=== PATIENT | female | born 1940 | race Caucasian/White ===

== ENCOUNTER 2020-12-09 10:33 | Emergency (ER) | payer OTHER ==
[2020-12-09 10:48] VITALS: BP 129/77; PULSE 84; TEMP 98.8; BMI 26.2
== END 2020-12-09 12:31 | disposition home or self-care (01) ==
LOC: JER 10:33
DX: R05 Cough (principal); Z11.52 Encounter for screening for COVID-19
CPT/HCPCS: 71046-TC-FY; 99284-25; C9803; U0003

== ENCOUNTER 2023-09-24 09:04 | Inpatient (IN) | payer OTHER ==
[2023-09-24] MEDS ORDERED: ALBUTEROL SO4 2.5/IPRATROPIUM 0.5 INH SOL 3 ML VIAL.NEB. NEB ONE ×7 (09:51→19:31)
[2023-09-24] MEDS ORDERED: methylPREDNISolone NA SUCC 125 MG/2 ML VIAL ONE (09:52)
[2023-09-24] MEDS ORDERED: MAGNESIUM SULF 50% (8.12 MEQ/2 ML-1 GM VIAL) IVPB ONE (09:52)
[2023-09-24] MEDS ORDERED: MAGNESIUM SULFATE IN WATER 2 GM/50 ML IVPB IVPB ONE (09:52)
[2023-09-24] MEDS ORDERED: AZITHROMYCIN IVPB 500 MG/250 ML BAG IVPB ONE (09:52)
[2023-09-24] MEDS ORDERED: methylPREDNISolone NA SUCC 125 MG/2 ML VIAL IVPB ONE (09:52)
[2023-09-24] MEDS ORDERED: DOXYCYCLINE INJECTION 100 MG in DEXTROSE 5%-WATER 100 ML IVPB ONE (10:20)
[2023-09-24 10:45] LABS: VENOUS BASE EXCESS 3.4 mmol/L (-2-2); VENOUS O2 SATURATION 46.2 % (70-80); VENOUS PCO2 50.3 mmHg (38-52); VENOUS PH 7.384 (7.310-7.410)
[2023-09-24 11:14] LABS: POTASSIUM 4.8 mmol/L (3.5-5.1)
[2023-09-24] MEDS ORDERED: DOXYCYCLINE HYCLATE 100 MG VIAL ONE (11:16)
[2023-09-24 11:19] LABS: ALBUMIN 3.9 g/dl (3.4-5.0); BLOOD UREA NITROGEN 11.2 mg/dL (7-18); MAGNESIUM 2.3 mg/dL (1.8-2.4)
[2023-09-24 11:22] LABS: CREATININE 0.6 mg/dL (0.55-1.3)
[2023-09-24 11:23] LABS: TOT PROT 7.5 g/dl (6.4-8.2)
[2023-09-24 11:43] LABS: HEMATOCRIT 37.4 % (32.4-45.2); HEMOGLOBIN 12.8 GM/dL (10.7-15.3); LYMPH % 27.2 % (8-40); MCH 31.9 pg (25.7-33.7); MCHC 34.2 g/dl (32.0-36.0); MEAN CELL VOLUME 93.4 fl (80-96); MEAN PLT VOLUME 10.5 fl (7.5-11.1); NEUT % 60.8 % (42.8-82.8); PLATELET COUNT 224 10^3/uL (134-434); RDW 13.1 % (11.6-15.6); WHITE BLOOD COUNT 6.6 K/mm3 (4.0-10.0)
[2023-09-24] MEDS ORDERED: methylPREDNISolone NA SUCC 40 MG/1 ML VIAL ONE ×2 (15:28→20:27)
[2023-09-24] MEDS: methylPREDNISolone NA SUCC 40 MG/1 ML VIAL IVPUSH SCH ×2 (16:19→20:35)
[2023-09-24] MEDS: ALBUTEROL SO4 2.5/IPRATROPIUM 0.5 INH SOL 3 ML VIAL.NEB. NEB SCH ×2 (16:20→19:35)
[2023-09-24] MEDS ORDERED: PRAMIPEXOLE DIHYDROCHLORIDE 0.125 MG TABLET PO SCH (22:00)
[2023-09-24] MEDS ORDERED: methylPREDNISolone NA SUCC 40 MG/1 ML VIAL IVPUSH SCH (22:07)
[2023-09-24] MEDS: ALBUTEROL SO4 0.083% IH SOL 2.5 MG/3 ML VIAL.NEB. NEB PRN ×2 (22:13→22:56)
[2023-09-24] MEDS ORDERED: ALBUTEROL SO4 0.083% IH SOL 2.5 MG/3 ML VIAL.NEB. NEB ONE (22:32)
[2023-09-24 23:00] LABS: ALLENS TEST POSITIVE; ARTERIAL BLD GAS O2 SATURATION 98.5 % (95-98); ARTERIAL BLOOD GAS BASE EXCESS -0.3 mmol/L (-2-2); ARTERIAL BLOOD GAS PO2 114.2 mmHg (80-100); ARTERIAL BLOOD GAS pH 7.478 (7.350-7.450)
[2023-09-24] MEDS ORDERED: ENOXAPARIN NA (PORCINE) 40 MG/0.4 ML DISP.SYRIN SQ SCH (23:45)
[2023-09-24] MEDS ORDERED: ENOXAPARIN NA (PORCINE) 40 MG/0.4 ML DISP.SYRIN SQ ONE (23:56)
[2023-09-25] MEDS ORDERED: AZITHROMYCIN IVPB 500 MG/250 ML BAG IVPB STA (00:59)
[2023-09-25] MEDS ORDERED: ALBUTEROL SO4 0.083% IH SOL 2.5 MG/3 ML VIAL.NEB. NEB PRN (02:57)
[2023-09-25] MEDS: methylPREDNISolone NA SUCC 40 MG/1 ML VIAL IVPUSH SCH ×4 (03:53→21:28)
[2023-09-25] MEDS ORDERED: PANTOPRAZOLE 40 MG TABLET PO SCH ×2 (07:00→10:00)
[2023-09-25 07:45] LABS: HEMOGLOBIN 12.2 GM/dL (10.7-15.3); MCH 30.9 pg (25.7-33.7); MCHC 32.1 g/dl (32.0-36.0); MEAN CELL VOLUME 96.1 fl (80-96); MEAN PLT VOLUME 9.2 fl (7.5-11.1); PLATELET COUNT 273 10^3/uL (134-434); RBC 3.95 M/mm3 (3.60-5.2); RDW 13.2 % (11.6-15.6); WHITE BLOOD COUNT 9.4 K/mm3 (4.0-10.0)
[2023-09-25 07:48] LABS: POTASSIUM 5.2 mmol/L (3.5-5.1)
[2023-09-25] MEDS ORDERED: ALBUTEROL SO4 0.083% IH SOL 2.5 MG/3 ML VIAL.NEB. NEB STA ×2 (07:53→07:54)
[2023-09-25 07:54] LABS: CALCIUM 8.9 mg/dL (8.5-10.1)
[2023-09-25 07:55] LABS: BLOOD UREA NITROGEN 15.4 mg/dL (7-18); MAGNESIUM 2.6 mg/dL (1.8-2.4)
[2023-09-25 07:58] LABS: CREATININE 0.6 mg/dL (0.55-1.3); PHOSPHOROUS 3.6 mg/dL (2.5-4.9)
[2023-09-25] MEDS: ALBUTEROL SO4 2.5/IPRATROPIUM 0.5 INH SOL 3 ML VIAL.NEB. NEB SCH ×4 (08:09→20:00)
[2023-09-25] MEDS ORDERED: ALPRAZolam 1 MG TABLET PO PRN (08:30)
[2023-09-25] MEDS ORDERED: ENOXAPARIN NA (PORCINE) 40 MG/0.4 ML DISP.SYRIN SQ SCH (10:00)
[2023-09-25] MEDS ORDERED: DOXYCYCLINE INJECTION 100 MG in DEXTROSE 5%-WATER 100 ML IVPB SCH (10:00)
[2023-09-25] MEDS ORDERED: QUEtiapine FUMARATE 25 MG TABLET PO SCH (10:00)
[2023-09-25] MEDS ORDERED: FLUTICASONE/UMECLIDIN/VILANTER(100-62.5-25 TRELEGY ELLIPTA) INAHLER IH SCH ×2 (10:00)
[2023-09-25] MEDS ORDERED: CEFTRIAXONE 1 GM in DEXTROSE 5%-WATER - 50 ML IVPB SCH ×2 (10:00)
[2023-09-25] MEDS ORDERED: VALSARTAN 80 MG TABLET PO SCH ×2 (10:00)
[2023-09-25] MEDS: MUPIROCIN 2% TOPICAL OINTMENT FOR DECOLONIZATION NS SCH ×2 (10:22→21:28)
[2023-09-25] MEDS: ALPRAZolam 0.25 MG TABLET PO PRN ×2 (11:16→23:40)
[2023-09-25] MEDS ORDERED: PNEUMOC 20-VAL CONJ-DIP CRM/PF 0.5 ML SYRINGE IM ONE (12:00)
[2023-09-25] MEDS ORDERED: PRAMIPEXOLE DIHYDROCHLORIDE 0.125 MG TABLET PO SCH (22:00)
[2023-09-25] MEDS ORDERED: CHLORHEXIDINE GLUCONATE 4% CLEANSER FOR DECOLONIZATION TP SCH (22:00)
[2023-09-26] MEDS: methylPREDNISolone NA SUCC 40 MG/1 ML VIAL IVPUSH SCH ×4 (04:36→21:41)
[2023-09-26] MEDS ORDERED: ALBUTEROL SO4 0.083% IH SOL 2.5 MG/3 ML VIAL.NEB. NEB PRN (06:08)
[2023-09-26] MEDS ORDERED: ALPRAZolam 0.25 MG TABLET PO PRN (06:08)
[2023-09-26 07:21] LABS: HEMATOCRIT 37.2 % (32.4-45.2); HEMOGLOBIN 11.9 GM/dL (10.7-15.3); MCH 30.7 pg (25.7-33.7); MEAN CELL VOLUME 95.9 fl (80-96); MEAN PLT VOLUME 8.8 fl (7.5-11.1); PLATELET COUNT 274 10^3/uL (134-434); RBC 3.88 M/mm3 (3.60-5.2); RDW 13.7 % (11.6-15.6); WHITE BLOOD COUNT 14.5 K/mm3 (4.0-10.0)
[2023-09-26 08:15] LABS: ALBUMIN 3.6 g/dl (3.4-5.0); BLOOD UREA NITROGEN 30.2 mg/dL (7-18); PHOSPHOROUS 3.7 mg/dL (2.5-4.9)
[2023-09-26 08:16] LABS: BILIRUBIN,TOTAL 0.3 mg/dL (0.2-1); TOT PROT 6.8 g/dl (6.4-8.2)
[2023-09-26 08:17] LABS: CALCIUM 8.5 mg/dL (8.5-10.1)
[2023-09-26 08:18] LABS: CREATININE 0.8 mg/dL (0.55-1.3); MAGNESIUM 2.7 mg/dL (1.8-2.4)
[2023-09-26] MEDS: ALBUTEROL SO4 2.5/IPRATROPIUM 0.5 INH SOL 3 ML VIAL.NEB. NEB SCH ×4 (08:25→20:28)
[2023-09-26] MEDS ORDERED: CEFTRIAXONE 1 GM in DEXTROSE 5%-WATER - 50 ML IVPB SCH (10:00)
[2023-09-26] MEDS ORDERED: MUPIROCIN 2% TOPICAL OINTMENT FOR DECOLONIZATION NS SCH (10:00)
[2023-09-26] MEDS: VALSARTAN 80 MG TABLET PO SCH (10:23)
[2023-09-26] MEDS: QUEtiapine FUMARATE 25 MG TABLET PO SCH (10:24)
[2023-09-26] MEDS: PANTOPRAZOLE 40 MG TABLET PO SCH (10:25)
[2023-09-26] MEDS: ENOXAPARIN NA (PORCINE) 40 MG/0.4 ML DISP.SYRIN SQ SCH (10:26)
[2023-09-26] MEDS: BENZOCAINE/MENTHOL 1 EACH LOZENGE MM PRN (15:37)
[2023-09-26] MEDS ORDERED: CHLORHEXIDINE GLUCONATE 4% CLEANSER FOR DECOLONIZATION TP SCH (22:00)
[2023-09-26] MEDS: PRAMIPEXOLE DIHYDROCHLORIDE 0.125 MG TABLET PO SCH (22:21)
[2023-09-27] MEDS: methylPREDNISolone NA SUCC 40 MG/1 ML VIAL IVPUSH SCH ×4 (02:21→21:09)
[2023-09-27] MEDS: ALBUTEROL SO4 2.5/IPRATROPIUM 0.5 INH SOL 3 ML VIAL.NEB. NEB SCH ×2 (07:45→11:16)
[2023-09-27 09:23] LABS: HEMATOCRIT 36.6 % (32.4-45.2); HEMOGLOBIN 11.9 GM/dL (10.7-15.3); MCH 30.9 pg (25.7-33.7); MCHC 32.4 g/dl (32.0-36.0); MEAN CELL VOLUME 95.5 fl (80-96); MEAN PLT VOLUME 9.4 fl (7.5-11.1); PLATELET COUNT 272 10^3/uL (134-434); RBC 3.84 M/mm3 (3.60-5.2); RDW 13.7 % (11.6-15.6); WHITE BLOOD COUNT 15.3 K/mm3 (4.0-10.0)
[2023-09-27] MEDS: VALSARTAN 80 MG TABLET PO SCH (09:39)
[2023-09-27] MEDS: QUEtiapine FUMARATE 25 MG TABLET PO SCH (09:40)
[2023-09-27] MEDS: PANTOPRAZOLE 40 MG TABLET PO SCH (09:41)
[2023-09-27] MEDS: ENOXAPARIN NA (PORCINE) 40 MG/0.4 ML DISP.SYRIN SQ SCH (09:41)
[2023-09-27] MEDS: BENZOCAINE/MENTHOL 1 EACH LOZENGE MM PRN (09:42)
[2023-09-27 09:44] LABS: POTASSIUM 4.2 mmol/L (3.5-5.1)
[2023-09-27 09:46] LABS: CALCIUM 8.6 mg/dL (8.5-10.1)
[2023-09-27 09:47] LABS: BLOOD UREA NITROGEN 28.3 mg/dL (7-18)
[2023-09-27 09:51] LABS: CREATININE 0.7 mg/dL (0.55-1.3)
[2023-09-27 10:53] LABS: ANISOCYTOSIS 0; HELMET CELLS 0; HOWELL-JOLLY BODIES 0; MACROCYTOSIS 0; OVALOCYTE 0; ROULEAU 0; SICKELED CELLS 0; TARGET CELLS 0; TEAR DROP CELLS 0; TOXIC GRANULATION 0
[2023-09-27] MEDS: FLUTICASONE/UMECLIDIN/VILANTER(100-62.5-25 TRELEGY ELLIPTA) INAHLER IH SCH (13:10)
[2023-09-27 14:46] VITALS: RESP 18
[2023-09-27 17:57] VITALS: BMI 25.0
[2023-09-27] MEDS: PRAMIPEXOLE DIHYDROCHLORIDE 0.125 MG TABLET PO SCH (21:10)
[2023-09-28] MEDS: methylPREDNISolone NA SUCC 40 MG/1 ML VIAL IVPUSH SCH ×4 (02:00→21:20)
[2023-09-28] MEDS: BENZOCAINE/MENTHOL 1 EACH LOZENGE MM PRN (03:09)
[2023-09-28] MEDS: ENOXAPARIN NA (PORCINE) 40 MG/0.4 ML DISP.SYRIN SQ SCH (10:58)
[2023-09-28] MEDS: VALSARTAN 80 MG TABLET PO SCH (10:58)
[2023-09-28] MEDS: QUEtiapine FUMARATE 25 MG TABLET PO SCH (10:58)
[2023-09-28] MEDS: PANTOPRAZOLE 40 MG TABLET PO SCH (10:58)
[2023-09-28] MEDS: FLUTICASONE/UMECLIDIN/VILANTER(100-62.5-25 TRELEGY ELLIPTA) INAHLER IH SCH (10:59)
[2023-09-28] MEDS: PRAMIPEXOLE DIHYDROCHLORIDE 0.125 MG TABLET PO SCH (21:20)
[2023-09-28] MEDS ORDERED: ACETAMINOPHEN 500 MG TABLET (FP) PO ONE (21:40)
[2023-09-29] MEDS: methylPREDNISolone NA SUCC 40 MG/1 ML VIAL IVPUSH SCH ×2 (02:31→09:37)
[2023-09-29 07:33] VITALS: BP 152/67; PULSE 61; TEMP 98.1
[2023-09-29] MEDS: PANTOPRAZOLE 40 MG TABLET PO SCH (09:37)
[2023-09-29] MEDS: ENOXAPARIN NA (PORCINE) 40 MG/0.4 ML DISP.SYRIN SQ SCH (09:37)
[2023-09-29] MEDS: VALSARTAN 80 MG TABLET PO SCH (09:37)
[2023-09-29] MEDS: QUEtiapine FUMARATE 25 MG TABLET PO SCH (09:37)
[2023-09-29 10:00] LABS: BASO % 0.1 % (0-2.0); HEMATOCRIT 36.9 % (32.4-45.2); HEMOGLOBIN 12.2 GM/dL (10.7-15.3); LYMPH % 8.9 % (8-40); MCH 31.5 pg (25.7-33.7); MCHC 33.1 g/dl (32.0-36.0); MEAN CELL VOLUME 95.3 fl (80-96); MEAN PLT VOLUME 9.9 fl (7.5-11.1); MONO % 5.2 % (3.8-10.2); NEUT % 85.8 % (42.8-82.8); PLATELET COUNT 262 10^3/uL (134-434); RBC 3.87 M/mm3 (3.60-5.2); RDW 13.1 % (11.6-15.6); WHITE BLOOD COUNT 7.1 K/mm3 (4.0-10.0)
[2023-09-29 10:19] LABS: POTASSIUM 4.2 mmol/L (3.5-5.1)
[2023-09-29 10:21] LABS: CALCIUM 8.2 mg/dL (8.5-10.1)
[2023-09-29 10:22] LABS: BLOOD UREA NITROGEN 23.7 mg/dL (7-18)
[2023-09-29 10:25] LABS: CREATININE 0.7 mg/dL (0.55-1.3)
[2023-09-29 11:02] LABS: ANISOCYTOSIS 0; MACROCYTOSIS 0
[2023-09-29] MEDS ORDERED: predniSONE 20 MG TABLET (UD) PO SCH (11:30)
[2023-09-29] MEDS: FLUTICASONE/UMECLIDIN/VILANTER(100-62.5-25 TRELEGY ELLIPTA) INAHLER IH SCH (11:59)
[2023-09-29] MEDS ORDERED: AMOX TR/POT CLAV 500MG/125MG TABLETS (FP) PO SCH (17:30)
== END 2023-09-29 15:24 | disposition home health service (06) | DRG 191 ==
LOC: JER 09:04 → JERBED 10:19 → JICU 09-25 01:16 → J8W 09-26 05:57
PROVIDERS: ADMIT Internal Medicine; ATTEND Internal Medicine
DX: J44.1 Chronic obstructive pulmonary disease with (acute) exacerbation (principal); E87.3 Alkalosis; J44.0 Chronic obstructive pulmonary disease with (acute) lower respiratory infection; I10 Essential (primary) hypertension; C50.919 Malignant neoplasm of unspecified site of unspecified female breast; F03.90 Unspecified dementia, unspecified severity, without behavioral disturbance, psychotic disturbance, mood disturbance, and anxiety; E78.5 Hyperlipidemia, unspecified; F41.9 Anxiety disorder, unspecified; I49.3 Ventricular premature depolarization
CPT/HCPCS: 0241U-QW; 36415; 36600; 71046-TC-FY; 71250-TC; 71275-TC; 80048; 80053; 82803; 83735; 84100; 84484; 85025; 85027; 87040; 87899; 93005; 93010; 93306-TC; 93970-TC; 94640; 94660; 94761; 97116-GP; 97161-GP; 99285-25; Q9967